=== PATIENT | male | born 2000 | race Caucasian/White ===

== ENCOUNTER 2025-05-04 09:14 | Emergency (ER) | payer OTHER, SELFPAY ==
[2025-05-04 09:15] VITALS: BP 123/86
[2025-05-04] MEDS: PEPCID 20 MG IV (09:29)
[2025-05-04] MEDS: SOLU-MEDROL PF 125 MG IV (09:29)
[2025-05-04] MEDS: ADRENALIN 0.3 MG IM (09:30)
[2025-05-04] MEDS: BENADRYL 25 MG IV (09:30)
--- NOTE | 2025-05-04 10:04 | ED.SKININJ ---
HPI-Injury
General
Chief Complaint: Bite
Time Seen by Provider: 05/04/25 09:19
History of Present Illness-Injury
Initial Injury comments:
Note:
CHIEF COMPLAINT(S)
Swelling at the site of a bee sting on the lip.
HISTORY OF PRESENT ILLNESS
The patient is a 25-year-old male who experienced a bee sting on the lip that led to significant localized swelling. The patient believes it was a yellow jacket. Despite previous encounters with bee stings, this is the first time the patient has
experienced a significant reaction of this nature. The back of the throat is patent, but due to the extent of the swelling, a dose of epinephrine is planned, along with steroid treatment via intravenous access. The patient initially
self-administered 20 mL of childrens liquid diphenhydramine but did not note significant improvement from this intervention.
PHYSICAL EXAM
General: Alert, no acute distress.
Skin: Warm, dry.
Head: Normocephalic, atraumatic.
Neck: Supple, trachea midline.
Eye Ears, nose, mouth, and throat: Oral mucosa moist. No tongue or posterior oropharyngeal edema, uvula normal. However, there is extensive moderate to severe angioedema to the right upper lip with no significant intraoral involvement
Cardiovascular: Normal peripheral perfusion, no edema. Heart is regular.
Respiratory: Respirations are non-labored. Breath sounds are clear without wheeze.
Gastrointestinal: Abdomen nondistended.
Back: Normal range of motion, Normal alignment.
Musculoskeletal: Normal range of motion, normal strength.
Neurological: Alert and oriented to person, place, time, and situation, no focal neurological deficit observed.
Psychiatric: Cooperative, appropriate mood & affect.
PROBLEM LIST
Acute:
1. Angioedema due to bee sting.
PLAN
1. Administer epinephrine injection to manage significant swelling.
2. Establish intravenous access for the administration of steroids and further medication as necessary.
3. Provide an additional 25mg dose of diphenhydramine intravenously.
4. Monitor the patient for any progression of symptoms or onset of respiratory difficulties.
DIFFERENTIAL DIAGNOSIS
The Differential Diagnosis includes, in no particular order and is not limited to:
1. Anaphylaxis
2. Acute allergic reaction
3. Angioedema
4. Localized allergic reaction
5. Cellulitis
6. Hereditary angioedema
7. Medication-related angioedema
8. Insect bite or sting reaction
9. Infection at the sting site
10. Mucosal inflammation
SUMMARY OF ENCOUNTER
The patient, a 25-year-old male, presented to the emergency department with significant swelling on the lip following a bee sting, suspected to be from a yellow jacket. The patient experiences this notable reaction for the first time, despite
previously tolerating bee stings without a significant response. Initially, the patient took 20 mL of childrens liquid diphenhydramine without much improvement. Given the swellings extent and possibility of further allergic reaction, epinephrine and
steroids were administered. After initial treatments, the patients condition was evaluated with plans to discharge once the patient improved. A prescription for an EpiPen was considered important considering the potential for a more severe reaction
in the future, with recommendations to consult an concrete pavement installer if desired.
DISPOSITION
The plan was to discharge the patient after observation and administration of necessary medications.
ASSESSMENT
The patient presented with a localized allergic reaction possibly indicative of angioedema due to a bee sting.
EMERGENCY TREATMENTS ADMINISTERED
The patient was administered epinephrine and steroids to manage the significant allergic response. Initial diphenhydramine self-administration by the patient did not significantly alleviate symptoms.
PLAN
Continue monitoring the patients response to treatment before discharge. Prescribe an EpiPen for future emergencies due to the potential risk of anaphylaxis with future bee stings. Consider prescribing a short course of steroids to reduce residual
swelling. Advise follow-up with an concrete pavement installer for possible desensitization testing.
FOLLOW-UP INSTRUCTIONS
The patient is recommended to follow up with an concrete pavement installer for further evaluation and possible allergy testing. If symptoms return or worsen, immediate medical attention should be sought.
MEDICATION RECONCILIATION
Prescription for an EpiPen was discussed, alongside the possible continuation of steroids for a few more days if deemed necessary upon discharge.
MEDICAL DECISION MAKING
1. Number and Complexity of Problems Addressed:
Chronic conditions affecting care: None mentioned.
DDx list: Anaphylaxis, acute allergic reaction, angioedema, localized allergic reaction, cellulitis, hereditary angioedema, medication-related angioedema, insect bite or sting reaction, infection at the sting site, mucosal inflammation.
2. Data:
Category 1:
Epinephrine and steroid medications were administered based on clinical presentation.
Category 3:
Discussion regarding the need for an EpiPen prescription and potential concrete pavement installer consultation was conducted, considering the environmental exposure risk and the patients new reaction history.
-Risk:
Consideration of Admission/Observation: Escalation of care including admission/observation was considered given the complexity and risk of the patients presenting complaint, exam findings, and/or their underlying comorbidities. However, ultimately I
feel the patient is safe for outpatient management with close follow-up. Reasoning: Work-up reassuring, does not reveal any acute life/organ-threatening processes, patients symptoms well controlled upon reevaluation, reexamination is reassuring,
vitals are stable, patient agreeable with discharge, reliable for follow-up.
DIAGNOSIS
Localized angioedema
On reassessment at 11:40 AM, although the upper lip angioedema persist, he overall feels improved. Will give prescription for EpiPen and prednisone. No involvement of the posterior oropharynx on reassessment.
Phy Exam
Physical Exam
Physical Exam:
See HPI
Course
Orders/Labs/Results
Orders:
Orders
05/04/25 09:21
Diphenhydramine [Benadryl] 25 mg IV NOW STA
EPINEPHrine PF [Adrenalin] 0.3 mg IM NOW STA
Famotidine [Pepcid] 20 mg IV NOW STA
05/04/25 09:22
Diphenhydramine [Benadryl] 50 mg .ROUTE .STK-MED ONE
EPINEPHrine PF [Adrenalin] 1 mg .ROUTE .STK-MED ONE
MethylPREDNISolone PF [Solu-Medrol Pf] 125 mg IV NOW STA
05/04/25 09:23
Famotidine [Pepcid] 20 mg .ROUTE .STK-MED ONE
MethylPREDNISolone PF [Solu-Medrol Pf] 125 mg .ROUTE .STK-MED ONE
Vital Signs
Initial and Last Documented VS:
Initial Vital Signs
Temp Pulse Resp BP Pulse Ox
36.7 C 72 16 123/86 98
05/04/25 09:15 05/04/25 09:15 05/04/25 09:15 05/04/25 09:15 05/04/25 09:15
Last Documented Vital Signs
Temp Pulse Resp BP Pulse Ox
36.7 C 68 15 117/63 99
05/04/25 09:15 05/04/25 10:40 05/04/25 10:40 05/04/25 10:40 05/04/25 10:40
*Pulse Oximetry
SaO2: 98
Oxygen Mode of Delivery: Room air
Patient hypoxic: no
*Critical Care Note
Total Time (30-74mins, 75-104mins- exclusive of procedures): Not Applicable
ED Attending Note
-
Portions of this chart may have been created with voice recognition software.� Occasional wrong word or��sound alike� substitutions may have occurred due to the inherent limitations of voice recognition software.
Discharge Plan
Departure
Prescriptions:
No Action
No Current Medications
0
Referrals:
Mohinder Feldman PA [Family Provider, Family Practice]
Interventions
Interventions:
*Risk Screen - Suicide Last Done: 05/04/25 09:15
*General Assessment Last Done: 05/04/25 09:27
*Neglect/Abuse Screening Last Done: 05/04/25 09:15
*ED- Fall Risk Assessment Last Done: 05/04/25 09:27
*ED COVID-19 Vaccine History Last Done: 05/04/25 09:27
ED-Skin Assessment Last Done: 05/04/25 10:42
Discharge Date and Time
Print Language: CANADIAN
[2025-05-04 10:40] VITALS: BP 117/63
[2025-05-04 11:50] VITALS: BP 116/62
== END 2025-05-04 11:50 | disposition home or self-care (01) ==
LOC: EMR 09:14
PROVIDERS: EMERGENCY PHYSICIAN Emergency Medicine; FAMILY PHYSICIAN Physician Assistant
DX: T78.3XXA Angioneurotic edema, initial encounter (principal); Y92.9 Unspecified place or not applicable
CPT/HCPCS: 99282